=== PATIENT | male | born 1940 | race Caucasian/White ===

== ENCOUNTER → 2018-03-11 | Outpatient (CLI) | payer MEDICARE, BC ==
[~2018-03-11] MED LIST: CEFUROXIME500 MG PO; DONEPEZIL HCL 55 M1 PO; LANOXIN 0.120.125 M2 PO; LEVOTHROID175 MCG PO; LEVSIN0.125 MG PO; LISINOPRIL10 MG PO; LOPRESSOR 50 MG50 M1 PO; PRAVACHOL20 MG PO; SERTRALINE HCL50 MG PO; XARELTO20 MG PO
== END ==
LOC: M.RAD 15:14
DX: K80.20 Calculus of gallbladder without cholecystitis without obstruction (principal); N20.0 Calculus of kidney; K82.8 Other specified diseases of gallbladder; N28.89 Other specified disorders of kidney and ureter

== ENCOUNTER → 2018-03-18 | Outpatient (CLI) | payer MEDICARE, BC | LOC: M.CT 10:43 | DX: K80.20 Calculus of gallbladder without cholecystitis without obstruction (principal); N28.1 Cyst of kidney, acquired; N20.0 Calculus of kidney; K40.20 Bilateral inguinal hernia, without obstruction or gangrene, not specified as recurrent; K42.9 Umbilical hernia without obstruction or gangrene; K57.30 Diverticulosis of large intestine without perforation or abscess without bleeding ==